=== PATIENT | male | born 1935 | race Caucasian/White ===

== ENCOUNTER 2023-04-07 12:15 | Emergency (ER) | payer MEDICARE, BC ==
[~2023-04-07] VITALS: Ht 177.8 cm; Wt 66.7 kg
[2023-04-07 12:21] VITALS: TEMP 98
--- NOTE | 2023-04-07 12:40 | NUR ---
Patient's records from [facility] all at bedside. PA stating no new labs or imaging needed at this time. Will continue to monitor.
[2023-04-07] MEDS ORDERED: LidoCAINE 2% Topical Jelly 11mL syringe TOP ONE (13:40)
--- NOTE | 2023-04-07 14:14 | NUR ---
pt jenn Chowdary would like to be informed of any changes and when he will be discharged back to facility he came from. Evie phone # [phone]
--- NOTE | 2023-04-07 14:15 | NUR ---
Patient pulling at equipment and lines - MD placed order for soft restraints due to pt previously pulling out logan cath (x4 times prior per report).
--- NOTE | 2023-04-07 15:07 | NUR ---
Reyes placed with 18F coude tip catheter. 1100ml out light yellow/peach urine in tubing directly upon insertion. Pt offered drink and repositioned - still in soft restraints.
--- NOTE | 2023-04-07 15:58 | NUR ---
Patient turned again. Pt stating he would like to leave and have some soup. Restraints tightness assessed - no CMS issues.
--- NOTE | 2023-04-07 16:00 | NUR ---
Reyes Cath bag drained-output 1300ml
--- NOTE | 2023-04-07 17:33 | NUR ---
Water given to pt @ 5147
--- NOTE | 2023-04-07 19:30 | NUR ---
called [facility] to give report . Spoke with Anika was informed the pt is not to return to his facility. I was informed the pt has been discharged. I inquired if this was the facility that sent him to the hospital today she answered "correct we sent him out". I requested she fallow up with her facility admin to check his status and explaind this is not normal procedure to discharge patients from there place of residence when they are sent out to an ER. Anika said she would look into it and let me know.
--- NOTE | 2023-04-07 20:05 | NUR ---
informed charge nurse of status change of transport to patients facility. Facility refusing to take back pt. Buddy Gilbert informed of pt refusal. 2nd call back to [facility] spoke with another nurse asked to speak with Anika I was told she could help me. I asked if they were able to get ahold of their admin on pt return status and was told again they will not accept the pt. that the pt was discharged. I once again explained this was not normal procedure on discharging a pt when being sent to a ER. Facility refused to take report and was adimate they will not accept the pt back. returned call to buddy Gilbert and updated her on 2nd attempt contacting [facility]. Ofelia said she would call the facility. phone # provided.
--- NOTE | 2023-04-07 20:30 | NUR ---
recievied call from person stating they were the admitting physician for [facility]. no name was provided. MD on phone states she was the admitting md for the facility and she was refusing to admit the pt back to her facility. I inquired why she explained resons of urinary retension and that the pt keeps removing his cath. I informed to the md that the cath has been replaced and that the pt is making urine and the cath placed is patient. her argument in return was they cant keep the pt from pulling out his own cath. i said that in not a faulty cath. i explained that the cath works and is patient, i also explained that its nursing intervention to keep an eye on the patient. I used the example of having a sitter in the room to keep an eye on the pt. the Md reverted back to the cath not being functional. i said ok hold on ill transfer you to our house sup. called transfered to [facility] sup.
--- NOTE | 2023-04-07 20:45 | NUR ---
status change for pt transport back to facility. House sup informed me to not send pt. hold on to pt in ED and case mgnt and admin will look into this in the A.M.. electrical discharge machine operator informed.
--- NOTE | 2023-04-07 21:03 | NUR ---
FAMILY (poa) SEAN UNDATED ON UNCLE STATUS
--- NOTE | 2023-04-07 22:05 | NUR ---
report called to marge in overflow. pt tx to room 23 by tech
--- NOTE | 2023-04-07 22:11 | NUR ---
The patient moved to bed 21 in the ER overflow. He has nonbehavioral restraints on his wrists 2nd to repeatedly pulling out his logan catheter. His has brick red urine in his logan bag. He denies problems. He is oriented to himself and he knew he was in the hospital.
--- NOTE | 2023-04-07 22:13 | NUR ---
Call to [facility] in [place], [place] and spoke with the nurse on duty, Oliva, she reports that the patient has been nonambulatory. She reports he has been on a regular diet with thin liquids. Requested the patient's H&P from the facility and his medication list and she reported that she would fax them.
--- NOTE | 2023-04-07 22:29 | NUR ---
Recieved Medical records that indicate hx of dementia, left hip fracture, acute renal injury 2nd to urinary retention. ORIF 03/24/23 of left hip. Mild degenerative changes of the knee and hip. Some deformaties of the pelvis from old fx. 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 CT of the spine on 03/23/23 Showed DDD.
[2023-04-07] MEDS ORDERED: ACET-2119 PO (22:37)
[2023-04-07] MEDS ORDERED: folic acid PO (22:44)
[2023-04-07] MEDS ORDERED: CYCL-394 PO (22:44)
[2023-04-07] MEDS ORDERED: MELA1TAB28 PO (22:44)
[2023-04-07] MEDS ORDERED: TOPI25TA15 PO (22:44)
[2023-04-07] MEDS ORDERED: CYAN500T71 PO (22:44)
[2023-04-07] MEDS ORDERED: FLO0.4C PO (22:44)
[2023-04-07] MEDS ORDERED: OXYC-658 PO (22:44)
[2023-04-07] MEDS ORDERED: LEVE10002 PO (22:44)
[2023-04-07] MEDS ORDERED: oxyCODONE IR 5mg (immed. release) tablet PO PRN (23:20)
[2023-04-07] MEDS ORDERED: cyclobenzaprine 10mg tablet PO PRN (23:20)
[2023-04-07] MEDS ORDERED: acetaminophen 325mg tablet PO PRN (23:20)
[2023-04-07] MEDS ORDERED: Melatonin 3mg tablet PO PRN (23:25)
--- NOTE | 2023-04-08 00:57 | NUR ---
The patient is awake off and on. Nursing waterworks supervisor aware MD ordered a sitter for the patient.
--- NOTE | 2023-04-08 00:58 | NUR ---
commission specialist is aware that the patient has an order for a sitter.
--- NOTE | 2023-04-08 02:24 | NUR ---
The patient has vesicle lesions to coccyx area and a dime size area on his spine that appears to be caused by pressure. Wound photos taken. Island dressing to left hip changed. Steri strips intact. Wound care consult ordered. Patient moved to a hospital bed and fresh linens given. Nonbehavioral restraints to both wrists 2nd to him pulling out his logan catheter. Patient was medicated with pain medication prior to moving to the hospital bed. Urine in logan is dark red.
[2023-04-08] MEDS ORDERED: LORazepam 2 mg/ml vial IV ONE (04:30)
[2023-04-08 06:04] LABS: BILIRUBIN,URINE SMALL (Neg); CLARITY,URINE CLOUDY (Clear); COLOR,URINE RED (Yellow); GLUCOSE, URINE 100 mg/dl (Neg); KETONES,URINE NEGATIVE (Neg); LEUKOCYTE ESTERASE ,URINE NEGATIVE (Neg); OCCULT BLOOD,URINE LARGE (Neg); PH,URINE 5.5 (4.8-8.0); PROTEIN,URINE >=300 mg/dl (Neg)
[2023-04-08 06:06] LABS: URINE AMPHETAMINE SCREEN NEGATIVE (Neg); URINE BARBITUATE SCREEN NEGATIVE (Neg); URINE BENZODIAZEPINES SCREEN NEGATIVE (Neg); URINE CANNABINOID SCREEN NEGATIVE (Neg); URINE COCAINE SCREEN NEGATIVE (Neg); URINE METHADONE SCREEN NEGATIVE (Neg); URINE OPIATE SCREEN POSITIVE (Neg); URINE PHENCYCLIDINE SCREEN NEGATIVE (Neg)
[2023-04-08 06:11] LABS: UA COLLECTION TYPE FOLEY CATH
[2023-04-08 06:12] LABS: NITRITES, URINE NEGATIVE (Neg)
[2023-04-08 06:13] LABS: RBC,URINE TNTC /HPF (0-2)
[2023-04-08 06:14] LABS: BACTERIA,URINE NONE SEEN /HPF (Neg); COARSE GRANULAR CAST 0-3 /LPF (NEGATIVE); MUCUS STRANDS NONE SEEN /LPF (Neg); SQUAMOUS EPITHELIAL CELL,UR NONE SEEN /LPF (FEW)
--- NOTE | 2023-04-08 06:45 | NUR ---
Patient resting quietly in bed. Reyes in place with sullivan red urine in bag - 200ml appx - no clots. Pt still in soft restraints - CMS+ in both UE.
--- NOTE | 2023-04-08 07:30 | NUR ---
Patient requesting water. HOB at 30 degrees and given sip of water. Otherwise, pt resting quietly.
[2023-04-08] MEDS ORDERED: ondansetron/PF 4mg/2ml inj IV PRN (08:00)
[2023-04-08] MEDS ORDERED: tamsulosin 0.4mg capsule PO SCH ×2 (08:00→20:00)
[2023-04-08] MEDS ORDERED: magnesium 4gm in 100ml NS 100 ML IV PRN (08:00)
[2023-04-08] MEDS ORDERED: folic acid 1mg tablet PO SCH (08:00)
[2023-04-08] MEDS ORDERED: acetaminophen 325mg tablet PO PRN ×2 (08:00)
[2023-04-08] MEDS ORDERED: HYDROcodone/acetaminophen 5mg/325mg tablet PO PRN (08:00)
[2023-04-08] MEDS ORDERED: magnesium 2GM in 50ml NS 50 ML IV PRN (08:00)
[2023-04-08] MEDS ORDERED: normal saline 1000ml 1,000 ML IV SCH (08:00)
[2023-04-08] MEDS ORDERED: CefTRIAXone 2gm/D5W 50ml BAG 50 ML IV SCH (08:00)
[2023-04-08] MEDS ORDERED: potassium Cl 40MEQ/1/2NS 520ml 520 ML IV PRN (08:00)
[2023-04-08] MEDS ORDERED: levetiracetam 250mg tablet PO SCH (08:00)
[2023-04-08] MEDS ORDERED: magnesium Cl slow-release 64mg tablet PO PRN (08:00)
[2023-04-08] MEDS ORDERED: morphine 2 MG/ML inj. syringe IV PRN ×2 (08:00)
[2023-04-08] MEDS ORDERED: potassium Cl 20 mEq SR tablet PO PRN ×2 (08:00)
[2023-04-08] MEDS ORDERED: topiramate 100mg tablet PO SCH (08:00)
[2023-04-08] MEDS ORDERED: cyanocobalamin 500mcg tablet PO SCH (08:00)
[2023-04-08] MEDS ORDERED: HYDROcodone/acetaminophen 10/325mg tab PO PRN (08:00)
--- NOTE | 2023-04-08 08:33 | NUR ---
MD to bedside for assessment. Soft wrist restraints still in place - no issues noted at this time. Reyes in place with sullivan red urine in bag.
[2023-04-08 09:52] LABS: BASOPHILS # (AUTO) 0.1 X10'3 (0-0.2); BASOPHILS % (AUTO) 0.7 % (0-1); EOSINOPHILS # (AUTO) 0.2 X10'3 (0-0.9); EOSINOPHILS % (AUTO) 2.7 % (0-6); HEMATOCRIT 31.4 % (42.0-52.0); HEMOGLOBIN 10.8 g/dl (14.0-17.9); LYMPHOCYTES # (AUTO) 1.3 X10'3 (1.1-4.8); LYMPHOCYTES % (AUTO) 18.5 % (21-51); MEAN CORPUSCULAR HGB CONC 34.2 g/dL (33.0-36.5); MEAN CORPUSCULAR VOLUME 90.6 FL (78-98); MEAN PLATELET VOLUME 6.2 FL (7.4-10.4); MONOCYTES # (AUTO) 0.6 X10'3 (0-0.9); MONOCYTES % (AUTO) 7.7 % (2-12); NEUTROPHILS # (AUTO) 5.1 X10'3 (1.8-7.7); NEUTROPHILS % (AUTO) 70.4 % (42-75); PLATELET COUNT 322 X10'3 (140-440); RED BLOOD COUNT 3.47 X10'6 (4.70-6.10); RED CELL DISTRIBUTION WIDTH 15.9 % (11.5-14.5); WHITE BLOOD COUNT 7.2 X10'3 (4.5-11.0)
--- NOTE | 2023-04-08 09:55 | NUR ---
VSS, RESTRAINTS ADJUSTED AND REMOVED. MD GRULLON AND WOC NURSE BEDSIDE TO ASSESS PT. PT TURNED WITH PILLOW UNDERNEATH. VSS
[2023-04-08 10:08] LABS: ALANINE AMINOTRANSFERASE 23 U/L (12-78); ALBUMIN 2.4 G/DL (3.4-5.0); ALBUMIN/GLOBULIN RATIO 0.7 (1.1-1.5); ALKALINE PHOSPHATASE 113 IU/L (46-116); ANION GAP 11 (8-16); ASPARTATE AMINO TRANSFERASE 17 U/L (10-37); BILIRUBIN,TOTAL 0.7 MG/DL (0.1-1.0); BLOOD UREA NITROGEN 60 MG/DL (7-18); CALCIUM 7.7 MG/DL (8.5-10.1); CHLORIDE 105 MMOL/L (99-107); GLUCOSE 95 MG/DL (70-104); POTASSIUM 3.8 MMOL/L (3.5-5.1); SODIUM 138 MMOL/L (135-145); TOTAL CARBON DIOXIDE 22.1 MMOL/L (24-32); eCRCL 17 ML/MIN; eGFR 20 ML/MIN
[2023-04-08 10:17] LABS: THYROID STIMULATING HORMONE 3.92 ulU/ml (0.34-4.50)
--- NOTE | 2023-04-08 10:54 | NUR ---
Spoke with pt's niece, Vidhi Cope, who is his POA. Her cell phone is:
[2023-04-08] MEDS ORDERED: levetiracetam 250mg tablet PO ONE (12:10)
[2023-04-08] MEDS ORDERED: CefTRIAXone 2gm/D5W 50ml BAG 50 ML IV ONE (12:10)
[2023-04-08] MEDS ORDERED: topiramate 100mg tablet PO ONE (12:20)
[2023-04-08] MEDS ORDERED: CefTRIAXone 1000mg IM Kit (w/lidocaine diluent) IM ONE (12:25)
--- NOTE | 2023-04-08 12:58 | NUR ---
Contacted earlier this morning by nursing securities vault supervisor that pt came overnight after pulling out his F/C at his SNF and they were unable to replace it due to a obstruction. Pt was sent from [facility] to [facility] who sent him here for urology consult. Dr. Rosales consulted and recommended a coude catheter which was placed by him in the ER. As pt was pulling at lines he was placed in restraints. When they tried to send him back to his facility, facility refused to take him as he was in restraints. Upon my arrival pt was still in the ER. Spoke w/ several people at [facility] and gave them an update on pt's condition and how he was stable to return to them. Davonte Dominguez who is the exchange administrator of the unit agreed to take him back. Asked that we fax orders to him at [phone]. They do not have transport back. Spoke w/ Dr. Khan in the ER who called their med director Dr. Villalba who informed him that pt was actually sent to the ER for eval of a obstruction which is prohibiting placement of the catheter. Dr. Khan requested a copy of the CT scan to further eval the mass. After some review Dr. Khan has discovered this is not a mass but rather "alot of stool", no mass is actually present and pt can return to the facility. Signed transfer orders faxed to [facility], contacted CAT and rec'd a perkins quote of $576.00 for a gurney transport back. Spoke w/ the exchange administrator Davonte and made him aware that Dr. Khan had spoken w/ Dr. Villalba and everyone is on board w/ taking him back. Pt has a 1800 picker packer time w/ CAT. continue to monitor.
--- NOTE | 2023-04-08 13:02 | NUR ---
Patient resting quietly at bedside. Offered lunch meal and patient stated, "I'm not hungry at all". Drank some water and had one bite of coffee cake.
--- NOTE | 2023-04-08 15:00 | NUR ---
Note john in ED - 04/08/23 at 1615 by [email or web address] Patient resting quietly in bed. Patient is calm and less aggitated than yesterday. [facility].
--- NOTE | 2023-04-08 15:03 | NUR ---
Patient resting at this time. Given new warm blanket and offered water. PT told his family member, Vidhi, called to check in on him.
--- NOTE | 2023-04-08 15:37 | NUR ---
PRESSURE ULCER EDUCATION: DEFINITION: A pressure ulcer is an area of skin that breaks down when you stay in one position too long. The constant pressure against the skin reduces the blood flow to that area and the affected tissue dies. CAUSES: "Being bedridden or in a wheelchair "Fragile skin "Having a chronic condition, such as diabetes or vascular disease "Inability to move certain parts of your body without assistance "Older age "Incontinence of urine or stool SYMPTOMS: "A reddened area that DOES NOT turn white when pressed on - this can be the beginning of a pressure ulcer "A blister, deep sore or a crater - these can be advanced pressure ulcers FIRST AID: "Relieve the pressure on this area "Keep the area clean and dry "Call your primary doctor if you see any of the above symptoms "DO NOT massage the area "DO NOT use a donut shaped or ring shaped pillow- these actually interfere with the blood flow and cause complications PREVENTION: "Check for pressure ulcers everyday "Change position at least every two hours to relieve pressure "Use items that help relieve pressure- pillows, sheepskin, foam padding, and powders. "Keep skin clean and dry "Eat healthy well balanced meals "Exercise daily IF YOU SEE ANY OF THESE SYMPTOMS WHILE IN THE HOSPITAL - TELL YOUR NURSE IMMEDIATELY. IF YOU SEE ANY OF THESE SYMPTOMS WHILE AT HOME OR HAVE ANY QUESTIONS OR CONCERNS ABOUT PRESSURE ULCERS - CALL YOUR PRIMARY DOCTOR IMMEDIATELY. Addendum: 04/08/23 at 1537 by Anu Benavidez LVN Amended: Links added.
--- NOTE | 2023-04-08 15:52 | NUR ---
Rec'd auth for CAT transport back to [facility] in [place] in the amount of $576.00 from DARCIE Mora. Transfer orders faxed to facility, pt's STEPHANIE Gallegos made aware of 1800 picker / packer time, she will notify pt's family. Continue to monitor.
[2023-04-08 17:50] VITALS: BP 129/67; PULSE 83; RESP 18; O2SAT 98
[2023-04-08] MEDS ORDERED: enoxaparin 40mg/0.4ml syringe SQ SCH (20:00)
[2023-04-08] MEDS ORDERED: pyridoxine 50mg tablet PO PRN (21:00)
== END 2023-04-08 19:00 ==
LOC: ER 12:18 → ED HOLD 04-08 08:03 → UNDOADMOB 04-08 08:03 → ER 04-08 19:00 → UNDODISOB 04-08 20:12
DX: T83.091A Other mechanical complication of indwelling urethral catheter, initial encounter (principal); R41.82 Altered mental status, unspecified; R33.9 Retention of urine, unspecified
CPT/HCPCS: 36415; 70450; 71045; 80053; 80305; 81001; 83605; 84443; 84484; 85025; 87040; 87077; 87088; 87186; 93005; 96372; 99285; J0696; J7030; A4340; A6212; A6213; C1758